=== PATIENT | female | born 1925 | race Caucasian/White ===

== ENCOUNTER → 2016-07-23 | Outpatient (CLI) | payer MEDICARE, BC ==
[~2016-07-23] MED LIST: ACET325T51 PO; ASPI-611 PO; BETA1TAB22 PO; CALC1CAP22 PO; CALMOSEPTINE OINTMENT 3.5 G PACKET TOP ONE; CITA20TA9 PO; CRAN500C3 PO; FEXO-118 PO; GUAI-782 PO; LORA0.5T2 PO; MELO-273 PO; MULT-806 PO; NAPH15DR BOTH EYES; SENN-156 PO; SULF1TAB42 PO; VALS80TA26 PO
== END ==
LOC: NWCC 10:27
PROVIDERS: ATTEND Internal Medicine
DX: S51.002A Unspecified open wound of left elbow, initial encounter (principal); Z91.81 History of falling; I10 Essential (primary) hypertension; F41.8 Other specified anxiety disorders; M21.372 Foot drop, left foot; D21.9 Benign neoplasm of connective and other soft tissue, unspecified; H35.30 Unspecified macular degeneration; F03.90 Unspecified dementia, unspecified severity, without behavioral disturbance, psychotic disturbance, mood disturbance, and anxiety; G25.0 Essential tremor; Z80.52 Family history of malignant neoplasm of bladder; Z83.3 Family history of diabetes mellitus; B96.89 Other specified bacterial agents as the cause of diseases classified elsewhere
CPT/HCPCS: 11042; 87070; 87075; 87147; 87186; 87205; A6209; A6210; A9270; G0463

== ENCOUNTER → 2016-08-14 | Outpatient (CLI) | payer MEDICARE, BC ==
[~2016-08-14] MED LIST changes: -CALMOSEPTINE OINTMENT 3.5 G PACKET TOP ONE; +SALINE FLUSH 10ml SYRINGE IVF ONE
== END ==
LOC: NWCC 10:50
PROVIDERS: ATTEND Internal Medicine
DX: S51.002A Unspecified open wound of left elbow, initial encounter (principal); W19.XXXS Unspecified fall, sequela; Z91.81 History of falling
CPT/HCPCS: 11042; A6021; A6210

== ENCOUNTER → 2016-08-28 | Outpatient (CLI) | payer MEDICARE, BC | LOC: NWCC 09:29 | PROVIDERS: ATTEND Internal Medicine | DX: S51.002A Unspecified open wound of left elbow, initial encounter (principal); W19.XXXS Unspecified fall, sequela; Z91.81 History of falling | CPT/HCPCS: 11042; A6021; A6209 ==

== ENCOUNTER → 2016-09-11 | Outpatient (CLI) | payer MEDICARE, BC ==
[~2016-09-11] MED LIST changes: -SALINE FLUSH 10ml SYRINGE IVF ONE
== END ==
LOC: NWCC 10:52
PROVIDERS: ATTEND Internal Medicine
DX: S51.002A Unspecified open wound of left elbow, initial encounter (principal); Z91.81 History of falling